=== PATIENT | male | born 1985 | race African-American/Black ===

== ENCOUNTER 2018-08-31 13:51 | Emergency (ER) | payer OTHER ==
[~2018-08-31] VITALS: Ht 180.3 cm; Wt 71.8 kg
[2018-08-31 13:51] VITALS: BP 139/81
[2018-08-31] MEDS ORDERED: AZITHROMYCIN 250 MG TAB PO ONE (14:45)
[2018-08-31] MEDS ORDERED: cefTRIAXone SOD 250 MG VIAL (J0696) IM ONE (14:45)
[2018-08-31] MEDS ORDERED: LIDOCAINE 1% SDV 5 ML VIAL DILUENT ONE (14:45)
[2018-08-31 16:41] LABS: CHLAMYDIA DNA AMPLIFICATION NEGATIVE (NEGATIVE); GC DNA AMPLIFICATION NEGATIVE (NEGATIVE)
[2018-09-01 10:06] LABS: HEPATITIS B SURFACE ANTIBODY NEGATIVE (POSITIVE); HEPATITIS B SURFACE ANTIGEN NEGATIVE (NEGATIVE); HEPATITIS C VIRUS ABY INDEX 0.1 INDEX (<0.8); HIV 1&2 SCREEN CENTAUR NEGATIVE (NEGATIVE)
== END 2018-08-31 15:25 | disposition home or self-care (01) ==
LOC: M ED 13:51
DX: R30.0 Dysuria (principal)
CPT/HCPCS: 86706; 86780; 86803; 87340; 87389; 87491; 87591; 96372; 99282; J0696